=== PATIENT | female | born 1965 | race Caucasian/White ===

== ENCOUNTER 2016-12-08 13:21 | Outpatient (CLI) | payer OTHER | END 2016-12-08 13:22 | disposition home or self-care (01) | DX: Z12.31 Encounter for screening mammogram for malignant neoplasm of breast (principal) ==

== ENCOUNTER 2018-06-14 09:57 | Day surgery (SDC) | payer OTHER ==
[2018-06-14] MEDS ORDERED: LACTATED RINGERS 1,000 ML IV ONE ×2 (10:19→11:39)
[2018-06-14] MEDS ORDERED: MIDAZOLAM 2 MG/2 ML VIAL IVP ONE (10:59)
[2018-06-14] MEDS ORDERED: fentaNYL 250 MCG/5 ML VIAL IVP ONE (10:59)
[2018-06-14 12:16] VITALS: BP 104/65
== END 2018-06-14 09:58 | disposition home or self-care (01) ==
LOC: SDS 09:57
PROVIDERS: ATTEND Surgery
PROC: 0DBP8ZZ Excision of Rectum, Via Natural or Artificial Opening Endoscopic (ICD-10-PCS; 2018-06-14)
PROC: 0DBN8ZZ Excision of Sigmoid Colon, Via Natural or Artificial Opening Endoscopic (ICD-10-PCS; principal; 2018-06-14 11:00)
DX: Z12.11 Encounter for screening for malignant neoplasm of colon (principal); D12.5 Benign neoplasm of sigmoid colon; K62.1 Rectal polyp; K64.8 Other hemorrhoids; F17.210 Nicotine dependence, cigarettes, uncomplicated; Z87.11 Personal history of peptic ulcer disease
CPT/HCPCS: 45380; 45385; J3010; J7120

== ENCOUNTER 2020-07-24 13:38 | Outpatient (CLI) | payer OTHER | END 2020-07-24 13:39 | disposition critical access hospital (66) | LOC: EMS 13:38 | PROVIDERS: ATTEND Surgery | DX: R07.89 Other chest pain (principal) | CPT/HCPCS: A0425; A0427 ==

== ENCOUNTER 2020-07-24 13:52 | Emergency (ER) | payer OTHER ==
--- NOTE | 2020-07-24 14:52 | XRAY Report ---
PROCEDURE: Chest 1 View X-Ray INDICATIONS: Chest pain TECHNIQUE: One view of the chest was acquired. COMPARISON: None FINDINGS: Surgical changes and devices: None. Lungs and pleura: No pleural effusions or pneumothorax. Lungs are clear. Mediastinum: Mediastinal contours appear normal. Heart size is normal. Bones and chest wall: No suspicious bony lesions. Overlying soft tissues appear unremarkable. IMPRESSION: No acute cardiopulmonary process demonstrated radiographically. Reviewed by: Shukri Villar MD on 07/24/2020 2:51 PM PST Approved by: Shukri Villar MD on 07/24/2020 2:51 PM PST Station ID: [id number]
[2020-07-24 14:57] LABS: BASOPHILS # (AUTO) 0.1 10^3/uL (0.0-0.1); BASOPHILS % (AUTO) 0.7 %; EOSINOPHILS # (AUTO) 0.5 10^3/uL (0.0-0.7); EOSINOPHILS % (AUTO) 6.9 %; HGB - HEMOGLOBIN 14.7 g/dL (12.0-16.0); LYMPHOCYTES # (AUTO) 1.7 10^3/uL (1.5-3.5); LYMPHOCYTES % (AUTO) 25.1 %; MEAN CORPUSCULAR HEMOGLOBIN 31.5 pg (27.0-31.0); MEAN CORPUSCULAR HGB CONC 33.9 g/dL (32.0-36.0); MEAN CORPUSCULAR VOLUME 93.1 fL (81.0-99.0); MEAN PLATELET VOLUME 10.2 fL (7.9-10.8); MONOCYTES # (AUTO) 0.6 10^3/uL (0.0-1.0); MONOCYTES % (AUTO) 8.5 %; NEUTROPHILS # (AUTO) 4.1 10^3/uL (1.5-6.6); NEUTROPHILS % (AUTO) 58.5 %; PLT - PLATELET COUNT 223 10^3/uL (130-450); RED BLOOD COUNT 4.66 10^6/uL (4.20-5.40); RED CELL DISTRIBUTION WIDTH 12.3 % (12.0-15.0); WHITE BLOOD COUNT 6.9 x10^3/uL (4.8-10.8)
[2020-07-24 15:11] LABS: ALBUMIN 4.3 g/dL (3.2-5.5); ALBUMIN/GLOBULIN RATIO 1.8 (1.0-2.2); BILIRUBIN,TOTAL 0.6 mg/dL (0.2-1.0); CALCIUM 9.5 mg/dL (8.5-10.3); CREATININE 0.8 mg/dL (0.4-1.0); TOTAL PROTEIN 6.7 g/dL (6.7-8.2)
--- NOTE | 2020-07-24 15:39 | ED Physician Documentation ---
PD HPI CHEST PAIN - Stated complaint Stated Complaint: CHEST PAIN - Chief complaint Chief Complaint: Cardiac - History obtained from History obtained from: Patient - Additional information Additional information: Is emergency department complaining of episodes of central chest burning on and off since 2 days ago. Patient states she was sitting and watching the news on TV when she began to get a feeling. She states at that time she had a sharp substernal pain, which lasted for a few minutes and then subsided. She states the burning also completely subsided some time after that, though she is not exactly sure how long the sensation lasted. She is also not sure how long it was until she got the next episode of burning, but that it happened on and off all day. She states that yesterday she also had the same burning sensation all day long and that has continued since then into today, as well. She states she called her primary care physician's office and they told her to come here and get checked out. No other complaints at this time. Patient denies any fevers or chills. No shortness of breath. She has chronic neck, shoulder, and upper back pain on both sides. She states this is not any worse than usual. No abdominal pain. No nausea or vomiting. No personal history of coronary artery disease. No family history of coronary artery disease. No personal or family history of venous thromboembolism. No other complaints at this time. She states that her pain currently is at a 1 or 2 out of 10, and is a substernal burning. No prior history of GERD. Review of Systems Ten Systems: 10 systems reviewed and negative Constitutional: reports: Reviewed and negative Eyes: reports: Reviewed and negative Ears: reports: Reviewed and negative Nose: reports: Reviewed and negative Throat: reports: Reviewed and negative Cardiac: reports: Chest pain / pressure Respiratory: reports: Reviewed and negative. denies: Dyspnea GI: reports: Reviewed and negative. denies: Nausea : reports: Reviewed and negative Skin: reports: Reviewed and negative Musculoskeletal: reports: Reviewed and negative Neurologic: reports: Reviewed and negative Psychiatric: reports: Reviewed and negative Endocrine: reports: Reviewed and negative Immunocompromised: reports: Reviewed and negative PD PAST MEDICAL HISTORY - Past Medical History Cardiovascular: None Respiratory: Asthma Endocrine/Autoimmune: None GI: Ulcers : None HEENT: None Psych: None Musculoskeletal: Chronic back pain Derm: None - Past Surgical History /[employer]: Dilation and currettage - Present Medications Home Medications: Ambulatory Orders Medication Instructions Recorded Confirmed Fluticasone [Flonase] 1 DAILY PRN 06/14/18 Loratadine [Allergy Relief] 1 DAILY PRN 06/14/18 - Allergies Allergies/Adverse Reactions: Allergies Allergy/AdvReac Type Severity Reaction Status Date / Time No Known Drug Allergies Allergy Verified 07/24/20 14:11 - Social History Does the pt smoke?: Yes Smoking Status: Current every day smoker Does the pt drink ETOH?: Yes ETOH Use: Wine, Beer, Liquor Does the pt have substance abuse?: No PD ED PE NORMAL - Vitals Vital signs reviewed: Yes - General General: Alert and oriented X 3, No acute distress - HEENT HEENT: PERRL - Neck Neck: Supple, no meningeal sign - Cardiac Cardiac: RRR, No murmur, Strong equal pulses - Respiratory Respiratory: No respiratory distress, Clear bilaterally - Abdomen Abdomen: Soft, Non tender, Non distended - Derm Derm: Normal color, Warm and dry, No rash - Extremities Extremities: No deformity, No edema, No calf tenderness / cord - Neuro Neuro: Alert and oriented X 3 - Psych Psych: Normal mood, Normal affect Results - Vitals Vitals: Vital Signs - 24 hr 07/24/20 07/24/20 07/24/20 13:59 14:30 15:00 Temperature 36.2 C L Heart Rate 55 L 58 L 63 Respiratory 14 18 17 Rate Blood Pressure 130/74 117/83 H 126/74 O2 Saturation 100 100 100 07/24/20 07/24/20 07/24/20 15:30 16:00 16:30 Temperature Heart Rate 63 59 L 58 L Respiratory 16 18 14 Rate Blood Pressure 131/78 H 120/72 118/79 O2 Saturation 100 100 100 Oxygen O2 Source ra - EKG (time done) 1425 Rate: Rate (enter#) (57) Rhythm: NSR [place]: Normal Intervals: Normal VA QRS: Normal Ischemia: Normal ST segments. No: T wave inversion Compare to prior EKG: Old EKG unavailable - Labs Labs: Laboratory Tests 07/24/20 07/24/20 07/24/20 14:42 14:42 14:42 WBC 6.9 RBC 4.66 Hgb 14.7 Hct 43.4 MCV 93.1 MCH 31.5 H MCHC 33.9 RDW 12.3 Plt Count 223 MPV 10.2 Neut # (Auto) 4.1 Lymph # (Auto) 1.7 [place] # (Auto) 0.6 Eos # (Auto) 0.5 Baso # (Auto) 0.1 Absolute Nucleated RBC 0.00 Nucleated RBC % 0.0 Sodium 141 Potassium 3.7 Chloride 100 L Carbon Dioxide 27 Anion Gap 14.0 H BUN 18 Creatinine 0.8 Estimated GFR (MDRD) 75 L Glucose 108 H Calcium 9.5 Total Bilirubin 0.6 AST 17 ALT 18 Alkaline Phosphatase 79 Troponin I High Sens 2.6 Total Protein 6.7 Albumin 4.3 Globulin 2.4 Albumin/Globulin Ratio 1.8 Lipase 31 07/24/20 16:04 WBC RBC Hgb Hct MCV MCH MCHC RDW Plt Count MPV Neut # (Auto) Lymph # (Auto) [place] # (Auto) Eos # (Auto) Baso # (Auto) Absolute Nucleated RBC Nucleated RBC % Sodium Potassium Chloride Carbon Dioxide Anion Gap BUN Creatinine Estimated GFR (MDRD) Glucose Calcium Total Bilirubin AST ALT Alkaline Phosphatase Troponin I High Sens 2.6 Total Protein Albumin Globulin Albumin/Globulin Ratio Lipase - Rads (name of study) CXR Radiology: Final report received, EMP read indepedently, See rad report (neg) PD MEDICAL DECISION MAKING - ED course Complexity details: reviewed results, re-evaluated patient, considered differential, d/w patient ED course: Patient was treated with aspirin in route and was given a GI cocktail here in the emergency department. She was worked up with labs and EKG, as well as chest x-ray, all of which were unremarkable. Repeat trop was the same as initial. I d/w pt that she should f/u with her PCP to get scheduled for a stress test to check for any underlying CAD that may be contributing to the pt's sx. At this time, pt is stable for d/c home. We have discussed the usual indications for return. Departure - Departure Disposition: 01 Home, Self Care Clinical Impression: Chest pain Qualifiers: Chest pain type: unspecified Qualified Code(s): R07.9 - Chest pain, unspecified Condition: Stable Instructions: ED Chest Pain Atypical Unkn Cause Comments: Your labs and EKG look great, as does your chest x-ray. It is not clear what is caused you to have the chest discomfort today. This could be result of reflux of stomach contents into your esophagus; however, given your age and smoking history, you are at some risk for coronary artery disease, and the clogging of the arteries that "feed" your heart muscle. This can put you at risk for heart attack. As such, it is very important that you call your primary care provider's office tomorrow morning to make an appointment to follow-up as soon as possible to have a stress test done. Please be sure to tell them that you were in the emergency department for chest pain and that it was recommended that you follow-up within the week for a stress test and reevaluation. If you develop severe pain associated with shortness of breath and nausea, you should return to the emergency department immediately. Discharge Date/Time: 07/24/20 17:53
[2020-07-24] MEDS ORDERED: LIDOCAINE VISCOUS 2% 15 ML UDC MM SCH (16:00)
[2020-07-24] MEDS ORDERED: LIDOCAINE VISCOUS 2% 100 ML BOTTLE MM SCH (16:00)
[2020-07-24] MEDS: MAG HYDROX/AL HYDROX/SIMETH 30 ML UDC PO SCH ×2 (16:57→16:58)
[2020-07-24 17:59] VITALS: BP 118/79
== END 2020-07-24 17:53 | disposition home or self-care (01) ==
LOC: EDUNIT# → ED 13:52
DX: R07.89 Other chest pain (principal); F17.200 Nicotine dependence, unspecified, uncomplicated
CPT/HCPCS: 36415; 71045; 80053; 83690; 84484; 85025; 93005; 99284; 99285; A9270

== ENCOUNTER 2020-08-03 13:33 | Outpatient (CLI) | payer OTHER ==
--- NOTE | 2020-08-06 14:53 | Mammography Report ---
BILATERAL DIGITAL SCREENING MAMMOGRAM 3D/2D: 08/03/2020 CLINICAL: Routine screening. Comparison is made to exams dated: 12/08/2016 mammogram and 11/10/2014 mammogram - Merged with [facility]. The tissue of both breasts is heterogeneously dense. This may lower the sensitivity of ma mmography. No significant masses, calcifications, or other findings are seen in either breast. There has been no significant interval change. IMPRESSION: NEGATIVE There is no mammographic evidence of malignancy. A 1 year screening mammogram is recommended. This exam was interpreted at Station ID: [id number]. NOTE: For mammograms, a report in lay terms will be sent to the patient. Approximately 15% of breast malignancies will not be visualized mammographically. In the management of a palpable breast mass, a negative mammogram must not discourage biopsy of a clinically suspicious lesion. Electronically Signed By: Melva chow/debrad:08/03/2020 15:47:17 ACR BI-RADS Category 1: Negative 3341F PARENCHYMAL PATTERN: (D) - The breast(s) demonstrate(s) heterogeneously dense fibroglandular parenchy ma. BI-RADS CATEGORY: (1) - 1 RECOMMENDATION: (ANNUAL) - Recommend routine annual screening mammography. [id number] 1 year screening LATERALITY: (B)
== END 2020-08-03 13:34 | disposition home or self-care (01) ==
LOC: DI 13:33
DX: Z12.31 Encounter for screening mammogram for malignant neoplasm of breast (principal)
CPT/HCPCS: 77063; 77067

== ENCOUNTER 2020-09-21 08:50 | Outpatient (CLI) | payer OTHER ==
--- NOTE | 2020-09-21 12:48 | CARDIAC PROCEDURE NOTE ---
DATE OF SERVICE: 09/21/2020 Physician: Yaz Carr MD, [facility] INDICATION: Chest pain. CARDIAC RISK FACTORS: Possible postmenopausal status, smoker. PROCEDURE: After signing informed consent, the patient underwent a Marc- protocol treadmill stress test with nuclear myocardial perfusion imaging. RESTING HEART RATE: 53. PEAK HEART RATE: 158 (94% predicted maximum heart rate for age). RESTING BLOOD PRESSURE: 131/76. PEAK BLOOD PRESSURE: 204/78. The patient exercised for 10 minutes on a Marc-protocol treadmill stress test. She achieved a peak heart rate of 158 (94% PMHR) and 11.8 METs. The patient had mild to moderate shortness of breath and rated her perceived exertion at 18/20, at peak on the James scale. The patient had her typical chest "tightness" before exercise, at rest, which she rated 1/10, which resolved with exercise. There was no chest pain that occurred during exercise. Oxygen saturation was 96%-99% on room air throughout the test. RESTING EKG: Sinus bradycardia, rate 53, within normal limits. EKG AT PEAK: Occasional PVCs are seen, [address] depressions that are upsloping, occur in leads II, III, AVF, and V3 through V6. SUMMARY 1. Essentially normal resting EKG. 2. Fair to good exercise tolerance. 3. Atypical chest pain; it was present at rest, rated as 1/10 "tightness" which resolved with exercise 4. Nonspecific ST-segment changes occur with exercise (upsloping segments are not specific for ischemia). 5. Nuclear images were reported separately and showed: Normal tracer distribution, no areas of infarction or ischemia. IMPRESSION: Normal stress test. cc: Marisabel Tong MD TD: 09/21/2020 11:48 MTDD
--- NOTE | 2020-09-21 16:39 | Nuclear Medicine Report ---
PROCEDURE: Rest and exercise myocardial perfusion SPECT with gated imaging and ejection fraction INDICATIONS: JADA - CHEST PAIN RADIOPHARMACEUTICAL: 15.0 mCi Tc-99m Myoview IV at rest and 49.8 mCi Tc-99m Myoview IV at peak exerc ise. [id number] was performed. TECHNIQUE: Radiopharmaceutical was injected at peak stress test, and also at rest. SPECT images wer e obtained. SPECT myocardial perfusion images were displayed in short axis, horizontal long axis, an d vertical long axis views. Gated images were reviewed using Auto[employer] software. COMPARISON: None available. FINDINGS: Raw data: There is good myocardial labeling by radiotracer. No significant motion artifacts. Lung- to-heart ratio is 0.34 (normal is less than 0.38 for tetrafosmin tracer). Left ventricle function: Gated images demonstrate normal left ventricle wall thickening. No segment al wall motion abnormality. No transient ischemic dilation; TID is 0.83 (normal less than 1.3). The left ventricle resting end-diastolic volume is normal. Left ventricle stress ejection fraction is gr eater than 70%; normal values are above 45%. Myocardial perfusion: There is normal distribution of activity in the left and right ventricular etelvina cardium. No fixed or reversible perfusion defects. IMPRESSION: 1. Normal myocardial perfusion images. No perfusion defect to suggest myocardial ischemia or infarct. 2. Normal left ventricular volume and systolic function. 3. Please correlate with stress EKG report. PQRS ATTESTATIONS: Measure 322 - Is this imaging test primarily performed on a low-risk surgery patient for preoperative evaluation within 30 days preceding their low-risk non-cardiac surgery? Low-risk surgery is defined as cardiac or myocardial infarction less than 1%, including (but not limited to) endoscopic pr ocedures, superficial procedures, cataract surgery, and excisional breast surgery: Answer: No Measure 323 - Is this imaging test performed primarily for the monitoring of an asymptomatic patient who had percutaneous coronary intervention on the visit date or within 2 years of the visit date? An swer: No Measure 324 - Is this imaging test performed primarily for the initial detection and risk assessment on an asymptomatic, low coronary heart disease patient? Low CHD risk definition = clinicians should consider the maximum number of available patient factors used to estimate risk based on [place] (A TP III criteria), typically age, gender, diabetes, smoking status, and use of blood pressure medicati on, and integrate age appropriate estimates for missing elements, such as LDL or standard blood press ure. Answer: No Reviewed by: Kendall Carrera MD on 09/21/2020 4:38 PM PST Approved by: Kendall Carrera MD on 09/21/2020 4:38 PM PST Station ID: [id number]
== END 2020-09-21 08:51 | disposition home or self-care (01) ==
LOC: DI 08:50
PROVIDERS: ATTEND Family Medicine
DX: R07.9 Chest pain, unspecified (principal)
CPT/HCPCS: 78452; 93017; A9500